=== PATIENT | female | born 1995 ===

== ENCOUNTER 2019-12-15 15:15 | Inpatient (IN) | payer OTHER ==
[~2019-12-15] VITALS: Ht 152.4 cm; Wt 3.2 kg
[2019-12-29] MEDS ORDERED: PRENATAL TABLE1 EAC1 PO (09:20)
== END 2020-01-01 14:29 | disposition home or self-care (01) | DRG 788 ==
LOC: EDSTATUS 15:15 → OB/GYN 12-29 08:37 → LDR 12-29 08:37 → OB/GYN 12-29 15:15
PROVIDERS: ADMIT Obstetrics & Gynecology; ATTEND Obstetrics & Gynecology
PROC: 10D00Z1 Extraction of Products of Conception, Low, Open Approach (ICD-10-PCS; principal; 2019-12-31)
PROC: 4A1HXFZ Monitoring of Products of Conception, Cardiac Rhythm, External Approach (ICD-10-PCS; 2019-12-31)
PROC: 3E033VJ Introduction of Other Hormone into Peripheral Vein, Percutaneous Approach (ICD-10-PCS; 2019-12-31)
PROC: 3E0234Z Introduction of Serum, Toxoid and Vaccine into Muscle, Percutaneous Approach (ICD-10-PCS; 2020-01-01)
DX: O61.0 Failed medical induction of labor (principal); Z20.828 Contact with and (suspected) exposure to other viral communicable diseases; Z3A.39 39 weeks gestation of pregnancy; Z37.0 Single live birth